=== PATIENT | female | born 1980 | race Caucasian/White ===

== ENCOUNTER 2022-02-07 11:18 | Outpatient (CLI) | payer MEDICAID ==
[~2022-02-07] VITALS: Ht 167.6 cm; Wt 87.5 kg
== END 2022-02-07 12:00 | disposition home or self-care (01) ==
LOC: SLB 11:18 → EDSTATUS 02-12 11:00
PROVIDERS: ATTEND Obstetrics & Gynecology
DX: Z01.812 Encounter for preprocedural laboratory examination (principal); Z20.822 Contact with and (suspected) exposure to COVID-19
CPT/HCPCS: 36415; 87635; U0003